=== PATIENT | female | born 1980 | race Caucasian/White ===

== ENCOUNTER 2019-10-18 19:31 | Observation (INO) ==
[2019-10-18 20:23] LABS: Basophils # (auto) 0.03 K/uL (0-0.2); Basophils % (auto) 0.2 %; Eosinophils % (auto) 2.1 %; Hematocrit (blood only) 37.2 % (37-47); Hemoglobin 12.5 g/dL (12.0-16.0); Immature Granulocytes # (auto) 0.02 K/uL (0.00-0.02); Immature Granulocytes % (auto) 0.1 %; Lymphocytes % (auto) 11.2 %; Mean Corpuscular Hemoglobin 27.5 pg (25-34); Mean Corpuscular Hgb Conc 33.6 g/dL (32-36); Mean Corpuscular Volume 81.8 fL (80-100); Monocytes # (auto) 0.71 K/uL (0.11-0.59); Neutrophils # (auto) 11.58 K/uL (1.4-6.5); Neutrophils % (auto) 81.4 %; Platelet Count 263 K/uL (130-400); RDW Coefficient of Variation 13.4 % (11.5-14.5); RDW Standard Deviation 40.2 fL (36.4-46.3); Red Blood Count 4.55 M/uL (4.2-5.4); White Blood Count 14.24 K/uL (4.8-10.8)
[2019-10-18] MEDS ORDERED: ONDANSETRON INJ 2 MG/ML 2 ML VIAL IV STA (20:38)
[2019-10-18] MEDS ORDERED: DICYCLOMINE HCL 10 MG/ML 2 ML AMP/VIAL IM ONE (20:38)
[2019-10-18] MEDS ORDERED: SODIUM CHLORIDE 0.9% 1000ML 1,000 ML IV ONE (20:38)
[2019-10-18] MEDS ORDERED: KETOROLAC 30 MG/ML VIAL IV STA (20:38)
[2019-10-18 20:40] LABS: Albumin Level 4.1 gm/dl (3.4-5.0); BUN Creatinine Ratio 14.9 (10-20); Calcium 9.2 mg/dl (8.5-10.1); Creatinine Clr Calc Pharmacy 76.4 ml/min; Est GFR (African American) 106.8; Est GFR (Non-African American) 92.1; Potassium 3.6 mmol/L (3.5-5.1)
[2019-10-18 20:43] LABS: Albumin Globulin Ratio 1.1 (0.9-2); Bilirubin,Total 0.2 mg/dl (0.2-1); Globulin 3.6 gm/dl (2.5-4.0); Total Protein 7.7 gm/dl (6.4-8.2)
[2019-10-18 21:06] LABS: Pregnancy Test, Urine Negative (Negative)
[2019-10-18 21:08] LABS: Appearance Urine Clear (Clear); Bacteria Urine Automated Negative (Negative); Bilirubin Urine Negative (Negative); Blood Urine Trace (Negative); Cast Urine Automated 0 /lpf (0-5); Color Urine Yellow; Epithelial Cell Urine Auto 0-5 /lpf (0-5); Glucose Urine UA Negative (Negative); Ketones Urine Negative (Negative); Leukocyte Esterase Urine Negative (Negative); Nitrite Urine Negative (Negative); Protein Urine Negative (Negative); RBC Urine Automated 0-4 /hpf (0-4); Specific Gravity Urine 1.014 (1.000-1.030); Urobilinogen Urine Negative (Negative); WBC Urine Automated 0 /hpf (0-5)
[2019-10-18] MEDS ORDERED: IOVERSOL 100ml IV PRN (21:23)
--- NOTE | 2019-10-18 21:38 | CT Scan Report ---
ABDOMEN AND PELVIS CT WITH IV CONTRAST CT DOSE: 258.80 mGycm HISTORY: Acute right lower quadrant abdominal pain with leukocytosis. suprapubic/RLQ pain, WBC 14 TECHNIQUE: Multiaxial CT images of the abdomen and pelvis were performed following the IV administrat ion of 94 cc of Optiray 320, A dose lowering technique was utilized adhering to the principles of [place] DA[place]. COMPARISON STUDY: None. FINDINGS: Minimal dependent bibasilar atelectasis. Trace right pleural effusion. No pneumatosis or pneumoperito neum. The imaged inferior cardiac chambers are unremarkable. Trace pericardial effusion. Spleen, panc reas, adrenal glands, gallbladder and liver appear unremarkable. Patency of the hepatic and portal ve ins. Probable cyst of the interpolar right kidney, 8 mm. The kidneys are otherwise unremarkable. Ureters, urinary bladder and uterus are unremarkable. Follicular changes of the ovaries. Aorta and IVC are unr emarkable. No bowel obstruction or bowel wall thickening. Nondilated fluid-filled loops of ileum are noted. Additionally, the appendix measures the upper limits of normal at 6.5 mm and is also fluid-donald led. The tip of the appendix is not well visualized. Limited exam without the use of IV contrast. No definite periappendiceal inflammation. Tiny fat filled periumbilical hernia. Breast parenchyma and so ft tissues are unremarkable. Subcutaneous air. The right gluteal tissues suggests medicinal injection site. IMPRESSION: 1. The appendix measures within the upper limits of normal and is fluid-filled. There are no signific ant periappendiceal inflammatory changes. Findings are equivocal for early acute appendicitis. Close follow-up is needed. 2. Nondilated fluid-filled loops of terminal ileum may be physiologic or reflect a nonspecific enteri tis. 3. Trace right pleural effusion with mild bibasilar atelectasis. ACT 112: Negative or not required by law. The above report was generated using voice recognition software. It may contain grammatical, syntax o r spelling errors. Electronically signed by: Juan Manuel Stephen M.D. 10/18/2019 9:37 PM
[2019-10-18] MEDS ORDERED: cefOXitin 2,000 MG/60 ML BAG IV STA (21:40)
[2019-10-18] MEDS ORDERED: SODIUM CHLORIDE 0.9% 500 ML IV SCH (21:45)
--- NOTE | 2019-10-18 23:31 | History & Physical Report ---
Date of Service October 18, 2019 Assessment & Plan (1) Abdominal pain: 38-year-old female with very mild lower abdominal pain and single episode of diarrhea. On my exam she appears to be somewhat improved from her initial presentation. The CT scan is negative for appendicitis though the appendix is the upper limits of normal. There is fluid within the appendix but also within the small bowel indicating a likely enteritis. Discussed her options to include diagnostic laparoscopy with appendectomy versus overnight observation with reassessment in the morning versus discharged home with close interval follow- up. At this point they would like to proceed with overnight observation Admit to observation No antibiotics Repeat labs in the morning Try to avoid pain meds IV fluids We will reassess in the morning Briefly discussed the risks of laparoscopic appendectomy to include but not limited to bleeding, infection, normal appendix, damage to surrounding structures, need for future more extensive surgery, conversion open, and the risk of anesthesia The differential diagnosis, and plan of care were discussed with the patient, all questions were answered, the patient expressed understanding agrees the plan of care as stated (2) Diarrhea: History of Present Illness Primary Care Provider: Jael Del Rosario MD 38-year-old female presented to the emergency department with lower abdominal pain along with a single episode of diarrhea. She noticed that this evening around 6 PM. Banding pain across the bilateral lower abdomen. Also had some upper abdominal discomfort. She did have a single episode of diarrhea. Denies any fevers. Denies any anorexia or nausea or vomiting. 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 She has never had pain like this before. Denies any history. Allergies Allergy/AdvReac Type Severity Reaction Status Date / Time josamycin Allergy Unknown Unverified 10/18/19 20:33 No Known Drug Allergies Allergy Verified 10/18/19 20:31 Home Medications Home Medications Medication Instructions Recorded Confirmed Type cyanocobalamin (vitamin B-12) 1,000 mcg PO QAM 10/18/19 10/18/19 History [Vitamin B-12] Past Med/Surg History Medical History Abdominal pain (Resolved) Abdominal pain BRBPR (bright red blood per rectum) Breast cyst (Acute) Bright red rectal bleeding (Resolved) DUB (dysfunctional uterine bleeding) (Acute) Dysautonomia Fatigue (Acute) Helicobacter pylori gastritis History of menstrual disorder No known health problems Surgical History History of esophagogastroduodenoscopy (EGD) PT STATES SHE HAD THIS PROCEDURE WITHOUT ANESTHESIA IN PAST Family History Mother Hypertension Stroke Grandmother (Maternal) Stroke Myocardial infarction Diabetes Hypertension Grandmother (Paternal) Stroke Social History Preferred Language: Bel[place]ian Communication Ability: Effective 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 Required: No Beliefs That Will Affect Care: None Current Living Situation: Spouse Feels Safe at Home: Yes Smoking Status: Never smoker Tobacco Type: cigarettes ; Cigarettes Per Day: QUIT 10 YEARS AGO ; Second Hand Exposure: No ; Hx Alcohol Use: Yes Alcohol type: wine Hx Substance Use: No Review of Systems Review of Systems: All systems reviewed & are unremarkable except as noted in HPI & below Physical Exam Constitutional: WD/WN, vitals as above Eyes: PERRL, conjunctivae normal, anicteric sclerae ENMT: external ear and nose normal, oropharynx normal Neck: trachea midline, no thyromegaly Respiratory: normal respiratory effort, lungs clear to auscultation Cardiovascular: RRR, no murmur, no edema Gastrointestinal (Abdomen): Percussion/Palpation: + abdomen tender (Tender to palpation in all 4 quadrants, worse in the lower abdomen. No guarding.) and abdomen soft; no guarding, abdomen not rigid, no hepatosplenomegaly and no hernia Musculoskeletal: no cyanosis or clubbing, extremities motor strength 5/5 Skin: no rashes, warm and dry Neurologic: PERRL, EOMI, accommodation nl, no face palsy, no dysarthria Psychiatric: A+Ox3, euthymic affect Lymphatic: no cervical or axillary lymphadenopathy Results & Data Vital Signs (Past 12 Hours) Vital Signs Temp Pulse Pulse Resp BP BP Pulse Ox 10/18/19 22:29 103 H 20 117/78 99 10/18/19 21:14 102 H 18 99/63 L 100 10/18/19 20:19 97 10/18/19 19:42 36.8 C 109 H 20 118/68 99 Laboratory Results Laboratory Results - last 24 hr 10/18/19 10/18/19 10/18/19 20:16 20:16 20:32 WBC 14.24 H RBC 4.55 Hgb 12.5 Hct 37.2 MCV 81.8 MCH 27.5 MCHC 33.6 RDW Std Deviation 40.2 RDW Coeff of Derick 13.4 Plt Count 263 MPV 9.0 Immature Gran % (Auto) 0.1 Neut % (Auto) 81.4 Lymph % (Auto) 11.2 [place] % (Auto) 5.0 Eos % (Auto) 2.1 Baso % (Auto) 0.2 Immature Gran # (Auto) 0.02 Neut # (Auto) 11.58 H Lymph # (Auto) 1.60 [place] # (Auto) 0.71 H Eos # (Auto) 0.30 Baso # (Auto) 0.03 Sodium 140 Potassium 3.6 Chloride 109 H Carbon Dioxide 25 Anion Gap 7.0 BUN 12 Creatinine 0.81 Est Cr Clr Drug Dosing 76.4 Est GFR ( Amer) 106.8 Est GFR (Non-Af Amer) 92.1 BUN/Creatinine Ratio 14.9 Glucose 114 H Calcium 9.2 Total Bilirubin 0.2 AST 6 L ALT 12 Alkaline Phosphatase 66 Total Protein 7.7 Albumin 4.1 Globulin 3.6 Albumin/Globulin Ratio 1.1 Lipase 131 Urine Color Urine Appearance Urine pH Ur Specific [place] Urine Protein Urine Glucose (UA) Urine Ketones Urine Blood Urine Nitrite Urine Bilirubin Urine Urobilinogen Ur Leukocyte Esterase Urine WBC (Auto) Urine RBC (Auto) U Hyaline Cast (Auto) U Epithel Cells (Auto) Urine Bacteria (Auto) Urine Test Negative 10/18/19 20:32 WBC RBC Hgb Hct MCV MCH MCHC RDW Std Deviation RDW Coeff of Derick Plt Count MPV Immature Gran % (Auto) Neut % (Auto) Lymph % (Auto) [place] % (Auto) Eos % (Auto) Baso % (Auto) Immature Gran # (Auto) Neut # (Auto) Lymph # (Auto) [place] # (Auto) Eos # (Auto) Baso # (Auto) Sodium Potassium Chloride Carbon Dioxide Anion Gap BUN Creatinine Est Cr Clr Drug Dosing Est GFR ( Amer) Est GFR (Non-Af Amer) BUN/Creatinine Ratio Glucose Calcium Total Bilirubin AST ALT Alkaline Phosphatase Total Protein Albumin Globulin Albumin/Globulin Ratio Lipase Urine Color Yellow Urine Appearance Clear Urine pH 5.0 Ur Specific [place] 1.014 Urine Protein Negative Urine Glucose (UA) Negative Urine Ketones Negative Urine Blood Trace H Urine Nitrite Negative Urine Bilirubin Negative Urine Urobilinogen Negative Ur Leukocyte Esterase Negative Urine WBC (Auto) 0 Urine RBC (Auto) 0-4 U Hyaline Cast (Auto) 0 U Epithel Cells (Auto) 0-5 Urine Bacteria (Auto) Negative Urine Test Diagnostic Findings ABDOMEN AND PELVIS CT WITH IV CONTRAST CT DOSE: 258.80 mGycm HISTORY: Acute right lower quadrant abdominal pain with leukocytosis. suprapubic/RLQ pain, WBC 14 TECHNIQUE: Multiaxial CT images of the abdomen and pelvis were performed following the IV administration of 94 cc of Optiray 320, A dose lowering technique was utilized adhering to the principles of ALARA. COMPARISON STUDY: None. FINDINGS: Minimal dependent bibasilar atelectasis. Trace right pleural effusion. No pneumatosis or pneumoperitoneum. The imaged inferior cardiac chambers are unremarkable. Trace pericardial effusion. Spleen, pancreas, adrenal glands, gallbladder and liver appear unremarkable. Patency of the hepatic and portal veins. Probable cyst of the interpolar right kidney, 8 mm. The kidneys are otherwise unremarkable. Ureters, urinary bladder and uterus are unremarkable. Follicular changes of the ovaries. Aorta and IVC are unremarkable. No bowel obstruction or bowel wall thickening. Nondilated fluid-filled loops of ileum are noted. Additionally, the appendix measures the upper limits of normal at 6.5 mm and is also fluid-filled. The tip of the appendix is not well visualized. Limited exam without the use of IV contrast. No definite periappendiceal inflammation. Tiny fat filled periumbilical hernia. Breast parenchyma and soft tissues are unremarkable. Subcutaneous air. The right gluteal tissues suggests medicinal injection site. IMPRESSION: 1. The appendix measures within the upper limits of normal and is fluid-filled. There are no significant periappendiceal inflammatory changes. Findings are equivocal for early acute appendicitis. Close follow-up is needed. 2. Nondilated fluid-filled loops of terminal ileum may be physiologic or reflect a nonspecific enteritis. 3. Trace right pleural effusion with mild bibasilar atelectasis. Code Status & VTE Plan VTE Prophylaxis Plan VTE Prophylaxis will be ordered: Yes PG Care Time/CCT Total # of Minutes Spent Total Time Spent with Patient: Total time spent is greater than 50% in coordination of care (as documented) at patient's floor/unit and/or counseling patient: Coding Level of Care Code 46523 OBS Care - Level 2 Diagnoses Abdominal pain R10.31 Abdominal location: right lower quadrant Diarrhea R19.7 (1) Abdominal pain Abdominal location: right lower quadrant Qualified Code(s): R10.31 - Right lower quadrant pain
[2019-10-19] MEDS ORDERED: MoRPHine SULFATE 2 MG/ML CARP IV PRN (00:06)
[2019-10-19] MEDS ORDERED: MoRPHine SULFATE 4 MG/ML 1 ML CARP\\VIAL IV PRN (00:06)
[2019-10-19] MEDS ORDERED: ONDANSETRON INJ 2 MG/ML 2 ML VIAL IV PRN (00:06)
[2019-10-19] MEDS ORDERED: ACETAMINOPHEN 1,000 MG/100 ML VIAL IV PRN (00:06)
[2019-10-19] MEDS ORDERED: DiphenhydrAMINE HCL 50 MG/ML VIAL IV PRN (00:06)
--- NOTE | 2019-10-19 00:12 | Emergency Department Note ---
Entered by Kimberley Petit acting as a scribe for Jarrell Frausto MD History of Present Illness General Chief complaint: Abdominal Pain Stated complaint: ABDOMINAL PAIN Time Seen by Provider: 10/18/19 19:52 Source: patient History of Present Illness Onset (ago): hour(s) 2 Location: abdomen Maximum Pain Intensity: 7 Quality: + sharp Associated symptoms: + denies other symptoms (urinary changes, changes to bowel movement, blood in urine or stool, fall, trauma); no nausea/vomiting Treatments prior to arrival: none The patient is a 38 year old female who presents to the Emergency Room with complaints of sharp abdominal pain beginning 2 hours ago. The patient states the pain initially felt like a spasm. She states she feels warm. The patient denies urinary changes, changes to bowel movements, blood in her urine or stool, fall, trauma, falls, and nausea. The patient denies taking pain medication. She denies use of alcohol or tobacco. She notes her last normal menstrual period occurred 7 days ago. She reports a history of GERD. Home Medications Home Medications Medication Instructions Recorded Confirmed Type cyanocobalamin (vitamin B-12) 1,000 mcg PO QAM 10/18/19 10/18/19 History [Vitamin B-12] Allergies Allergy/AdvReac Type Severity Reaction Status Date / Time josamycin Allergy Unknown Unverified 10/18/19 20:33 No Known Drug Allergies Allergy Verified 10/18/19 20:31 Past Med/Surg History Medical History (Updated 10/18/19 @ 23:29 by Adan Lisa DO, FACS) Abdominal pain (Resolved) Abdominal pain BRBPR (bright red blood per rectum) Breast cyst (Acute) Bright red rectal bleeding (Resolved) Diarrhea DUB (dysfunctional uterine bleeding) (Acute) Dysautonomia Fatigue (Acute) Helicobacter pylori gastritis History of menstrual disorder No known health problems Surgical History History of esophagogastroduodenoscopy (EGD) PT STATES SHE HAD THIS PROCEDURE WITHOUT ANESTHESIA IN PAST Family History Mother Hypertension Stroke Grandmother (Maternal) Stroke Myocardial infarction Diabetes Hypertension Grandmother (Paternal) Stroke Social History Preferred Language: Slovenian Communication Ability: Effective Agency Sales Development Associate Required: No Beliefs That Will Affect Care: None Current Living Situation: Spouse Feels Safe at Home: Yes Smoking Status: Never smoker Tobacco Type: cigarettes ; Cigarettes Per Day: QUIT 10 YEARS AGO ; Second Hand Exposure: No ; Hx Alcohol Use: Yes Alcohol type: wine Hx Substance Use: No Review of Systems See HPI for pertinent positives & negatives. and A total of 10 systems reviewed and were otherwise negative Physical Exam Vital Signs Vital Signs - 24 hr 10/18/19 19:42 10/18/19 20:19 10/18/19 21:14 Temperature 36.8 C Temperature Source Oral Pulse Rate 109 H Pulse Rate [Finger] 102 H Respiratory Rate 20 18 Respiratory Effort / Characteristics Non-Labored Spontaneous Non-Labored Respiratory Depth Normal Normal Blood Pressure 118/68 Blood Pressure [Left Arm] 99/63 L Blood Pressure Mean 84 Blood Pressure Mean [Left Arm] 75 Pulse Oximetry 99 97 100 Oxygen Delivery Method Room Air Room Air Room Air Sepsis Action Taken by Nursing No Action Required 10/18/19 22:29 Temperature Temperature Source Pulse Rate Pulse Rate [Finger] 103 H Respiratory Rate 20 Respiratory Effort / Characteristics Non-Labored Respiratory Depth Normal Blood Pressure Blood Pressure [Left Arm] 117/78 Blood Pressure Mean Blood Pressure Mean [Left Arm] 91 Pulse Oximetry 99 Oxygen Delivery Method Room Air Sepsis Action Taken by Nursing GENERAL: Well appearing, well nourished, NAD, non-toxic. EYE EXAM: Normal conjunctiva. PERRL, no anisocoria and EOM's grossly intact w/o pain. OROPHARYNX: Moist mucous membranes. Grossly normal dentition. NECK: Supple, no nuchal rigidity, no adenopathy, non-tender. No signs of meningismus. LUNGS: Clear to auscultation. Normal chest wall mechanics. HEART: NSR, no MRG. ABDOMEN: Suprapubic discomfort; questionable positive Obturator's; negative Psoas. Abdomen soft, normo-active bowel sounds, no masses, no rebound or guarding. BACK: No CVA TTP. SKIN: No rashes and no bruising. UPPER EXTREMITIES: Upper extremities are grossly normal. LOWER EXTREMITIES: No pitting edema. No calf pain. NEURO EXAM: A&O x3, cranial nerves II-XII grossly intact, normal speech, moves all 4 extremities on command w/o issue. Course Course 2010: Past medical records reviewed. The patient was evaluated in room B10. A complete history and physical exam was performed. 2044: Upon reevaluation, the patient is getting pain medication. 2139: I spoke to Dr. Lisa - General Surgery who agrees to come see the patient. 2149: Upon reevaluation, I discussed findings and results with the patient. She verbalized agreement of the treatment plan. I spoke with Dr. Lisa who agrees to accept the patient for further management and care. Administered Medications Discontinued Medications Dicyclomine HCl (Bentyl) 20 mg IM NOW ONE Stop: 10/18/19 20:39 Last Admin: 10/18/19 21:01 Dose: 20 mg Documented by: [id number] Sodium Chloride (Nss 1000ml) 1,000 mls @ 999 mls/hr IV .Q1H1M ONE Stop: 10/18/19 21:38 Last Infusion: 10/18/19 22:13 Dose: 0 mls/hr Documented by: [id number] Admin: 10/18/19 21:02 Dose: 999 mls/hr Documented by: [id number] Cefoxitin Sodium (Mefoxin) 2,000 mg in 60 mls @ 100 mls/hr IV NOW STA Stop: 10/18/19 22:15 Last Infusion: 10/18/19 23:50 Dose: 0 mls/hr Documented by: [id number] Admin: 10/18/19 23:16 Dose: 100 mls/hr Documented by: [id number] Sodium Chloride (Nss) 500 mls @ 125 mls/hr IV .Q4H REINALDO Stop: 11/17/19 21:44 Last Admin: 10/18/19 23:16 Dose: 125 mls/hr Documented by: [id number] Ioversol (Optiray 320 100ml) 94 ml IV ONCE PRN PRN Reason: Interaction Checking Stop: 10/22/19 21:22 Last Admin: 10/18/19 21:24 Dose: 94 ml Documented by: [id number] Ketorolac Tromethamine (Toradol) 30 mg IV NOW STA Stop: 10/18/19 20:39 Last Admin: 10/18/19 21:01 Dose: 30 mg Documented by: [id number] Ondansetron HCl (Zofran) 4 mg IV NOW STA Stop: 10/18/19 20:39 Last Admin: 10/18/19 21:01 Dose: 4 mg Documented by: [id number] Medical Decision Making Differential Diagnosis Differential diagnoses includes but is not limited to gastritis, peptic ulcer disease, GERD, gallbladder disease, pancreatitis, small bowel obstruction, acute coronary syndrome, pericarditis, ischemic bowel, irritable bowel disease, irr itable bowel syndrome, appendicitis, diverticulitis, malignancy, hernia, urinary tract infection, torsion, /ectopic , perforation, trauma, infectious. Medical Records Attestation: I reviewed the patient's medical records. Home Medications Current Medication List: was personally reviewed by me Laboratory Data Attestation: I reviewed the patient's lab results. Result diagrams: 10/18/19 20:16 10/18/19 20:16 Lab Results 10/18/19 10/18/19 10/18/19 Range/Units 20:16 20:16 20:32 WBC 14.24 H (4.8-10.8) K/uL RBC 4.55 (4.2-5.4) M/uL Hgb 12.5 (12.0-16.0) g/dL Hct 37.2 (37-47) % MCV 81.8 (80-100) fL MCH 27.5 (25-34) pg MCHC 33.6 (32-36) g/dL RDW Std Deviation 40.2 (36.4-46.3) fL RDW Coeff of Derick 13.4 (11.5-14.5) % Plt Count 263 (130-400) K/uL MPV 9.0 (7.4-10.4) fL Immature Gran % (Auto) 0.1 % Neut % (Auto) 81.4 % Lymph % (Auto) 11.2 % Mccreary % (Auto) 5.0 % Eos % (Auto) 2.1 % Baso % (Auto) 0.2 % Immature Gran # (Auto) 0.02 (0.00-0.02) K/uL Neut # (Auto) 11.58 H (1.4-6.5) K/uL Lymph # (Auto) 1.60 (1.2-3.4) K/uL Mccreary # (Auto) 0.71 H (0.11-0.59) K/uL Eos # (Auto) 0.30 (0-0.5) K/uL Baso # (Auto) 0.03 (0-0.2) K/uL Sodium 140 (136-145) mmol/L Potassium 3.6 (3.5-5.1) mmol/L Chloride 109 H (98-107) mmol/L Carbon Dioxide 25 (21-32) mmol/L Anion Gap 7.0 (3-11) BUN 12 (7-18) mg/dl Creatinine 0.81 (0.6-1.2) mg/dl Est Cr Clr Drug Dosing 76.4 ml/min Est GFR ( Amer) 106.8 Est GFR (Non-Af Amer) 92.1 BUN/Creatinine Ratio 14.9 (10-20) Glucose 114 H (70-99) mg/dl Calcium 9.2 (8.5-10.1) mg/dl Total Bilirubin 0.2 (0.2-1) mg/dl AST 6 L (15-37) U/L ALT 12 (12-78) U/L Alkaline Phosphatase 66 (45-117) U/L Total Protein 7.7 (6.4-8.2) gm/dl Albumin 4.1 (3.4-5.0) gm/dl Globulin 3.6 (2.5-4.0) gm/dl Albumin/Globulin Ratio 1.1 (0.9-2) Lipase 131 (73-393) U/L Urine Color Urine Appearance (Clear) Urine pH (4.5-7.5) Ur Specific Warren (1.000-1.030) Urine Protein (Negative) Urine Glucose (UA) (Negative) Urine Ketones (Negative) Urine Blood (Negative) Urine Nitrite (Negative) Urine Bilirubin (Negative) Urine Urobilinogen (Negative) Ur Leukocyte Esterase (Negative) Urine WBC (Auto) (0-5) /hpf Urine RBC (Auto) (0-4) /hpf U Hyaline Cast (Auto) (0-5) /lpf U Epithel Cells (Auto) (0-5) /lpf Urine Bacteria (Auto) (Negative) Urine Test Negative (Negative) 10/18/19 Range/Units 20:32 WBC (4.8-10.8) K/uL RBC (4.2-5.4) M/uL Hgb (12.0-16.0) g/dL Hct (37-47) % MCV (80-100) fL MCH (25-34) pg MCHC (32-36) g/dL RDW Std Deviation (36.4-46.3) fL RDW Coeff of Derick (11.5-14.5) % Plt Count (130-400) K/uL MPV (7.4-10.4) fL Immature Gran % (Auto) % Neut % (Auto) % Lymph % (Auto) % Mccreary % (Auto) % Eos % (Auto) % Baso % (Auto) % Immature Gran # (Auto) (0.00-0.02) K/uL Neut # (Auto) (1.4-6.5) K/uL Lymph # (Auto) (1.2-3.4) K/uL Mccreary # (Auto) (0.11-0.59) K/uL Eos # (Auto) (0-0.5) K/uL Baso # (Auto) (0-0.2) K/uL Sodium (136-145) mmol/L Potassium (3.5-5.1) mmol/L Chloride (98-107) mmol/L Carbon Dioxide (21-32) mmol/L Anion Gap (3-11) BUN (7-18) mg/dl Creatinine (0.6-1.2) mg/dl Est Cr Clr Drug Dosing ml/min Est GFR ( Amer) Est GFR (Non-Af Amer) BUN/Creatinine Ratio (10-20) Glucose (70-99) mg/dl Calcium (8.5-10.1) mg/dl Total Bilirubin (0.2-1) mg/dl AST (15-37) U/L ALT (12-78) U/L Alkaline Phosphatase (45-117) U/L Total Protein (6.4-8.2) gm/dl Albumin (3.4-5.0) gm/dl Globulin (2.5-4.0) gm/dl Albumin/Globulin Ratio (0.9-2) Lipase (73-393) U/L Urine Color Yellow Urine Appearance Clear (Clear) Urine pH 5.0 (4.5-7.5) Ur Specific Warren 1.014 (1.000-1.030) Urine Protein Negative (Negative) Urine Glucose (UA) Negative (Negative) Urine Ketones Negative (Negative) Urine Blood Trace H (Negative) Urine Nitrite Negative (Negative) Urine Bilirubin Negative (Negative) Urine Urobilinogen Negative (Negative) Ur Leukocyte Esterase Negative (Negative) Urine WBC (Auto) 0 (0-5) /hpf Urine RBC (Auto) 0-4 (0-4) /hpf U Hyaline Cast (Auto) 0 (0-5) /lpf U Epithel Cells (Auto) 0-5 (0-5) /lpf Urine Bacteria (Auto) Negative (Negative) Urine Test (Negative) Imaging Data Radiologist's Impression: Radiology results as stated below per my review and the radiologist's interpretation: ABDOMEN AND PELVIS CT WITH IV CONTRAST CT DOSE: 258.80 mGycm HISTORY: Acute right lower quadrant abdominal pain with leukocytosis. supr apubic/RLQ pain, WBC 14 TECHNIQUE: Multiaxial CT images of the abdomen and pelvis were performed fo llowing the IV administration of 94 cc of Optiray 320, A dose lowering technique was utilized adhering to the principles of ALARA. COMPARISON STUDY: None. FINDINGS: Minimal dependent bibasilar atelectasis. Trace right pleural effusion. No pneumatosis or pneumoperitoneum. The imaged inferior cardiac chambers are unremarkable. Trace pericardial effusion. Spleen, pancreas, adrenal glands, gallbladder and liver appear unremarkable. Patency of the hepatic and portal veins. Probable cyst of the interpolar right kidney, 8 mm. The kidneys are otherwise unremarkable. Ureters, urinary bladder and uterus are unremarkable. Follicular changes of the ovaries. Aorta and IVC are unremarkable. No bowel obstruction or bowel wall thickening. Nondilated fluid-filled loops of ileum are noted. Additionally, the appendix measures the upper limits of normal at 6.5 mm and is also fluid-filled. The tip of the appendix is not well visualized. Limited exam without the use of IV contrast. No definite periappendiceal inflammation. Tiny fat filled periumbilical hernia. Breast parenchyma and soft tissues are un remarkable. Subcutaneous air. The right gluteal tissues suggests medicinal injection site. IMPRESSION: 1. The appendix measures within the upper limits of normal and is fluid-filled. There are no significant periappendiceal inflammatory changes. Findings are equivocal for early acute appendicitis. Close follow-up is needed. 2. Nondilated fluid-filled loops of terminal ileum may be physiologic or reflect a nonspecific enteritis. 3. Trace right pleural effusion with mild bibasilar atelectasis. ACT 112: Negative or not required by law. The above report was generated using voice recognition software. It may contain grammatical, syntax or spelling errors. Electronically signed by: Juan Manuel Stephen M.D. 10/18/2019 9:37 PM Blood Pressure Blood Pressure Findings: Normal blood pressure MDM Narrative The patient is a 38 year old female who presents to the Emergency Room with complaints of sharp abdominal pain beginning 2 hours ago. Patient was seen and evaluated at the bedside. The patient did present with concern for right lower quadrant pain. The patient is also had some mild suprap ubic discomfort. The patient has had some infectious symptoms. The patient has had associated nausea but without vomiting. No recent heavy lifting twisting or turning or abdominal trauma. Patient denies any prior history of abdominal surgery. The patient did have blood work completed which did show mild white count of 14. Kidney function is unremarkable. Patient is a normal H&H and platelet count. The patient's urinalysis shows trace blood but no other findings. The patient CT abdomen pelvis does show equivocal for acute early appendicitis. I did speak with the on-call surgeon who did evaluate the patient at the bedside. And will keep for monitoring. Patient was made n.p.o. started on IV fluids and given a dose of antibiotics. Patient was admitted to the general surgery service. Impression & Plan Appendicitis, Abdominal pain Discharge Plan Visit Data Chief Complaint: Abdominal Pain Stated Complaint: ABDOMINAL PAIN ED Provider: Jarrell Frausto Discharge Problem: Appendicitis, Abdominal pain Patient Disposition: Being Evaluated by Hospitalist Discharge Instructions Interventions: ED Discharge Assessment Last Done: 10/18/19 23:48 Discharge Problem: Appendicitis Qualifiers: Appendicitis type: unspecified Qualified Code(s): K37 - Unspecified appendicitis Abdominal pain Qualifiers: Abdominal location: right lower quadrant Qualified Code(s): R10.31 - Right lower quadrant pain The scribe's documentation has been prepared under my direction and personally reviewed by me in its entirety. I confirm that the note above accurately reflects all work, treatment, procedures, and medical decision making performed by me.
[2019-10-19] MEDS: LACTATED RINGER'S 1,000 ML IV SCH ×2 (00:50→08:56)
[2019-10-19 05:36] LABS: Basophils # (auto) 0.03 K/uL (0-0.2); Basophils % (auto) 0.3 %; Eosinophils # (auto) 0.16 K/uL (0-0.5); Eosinophils % (auto) 1.4 %; Hematocrit (blood only) 33.8 % (37-47); Hemoglobin 11.2 g/dL (12.0-16.0); Immature Granulocytes # (auto) 0.02 K/uL (0.00-0.02); Immature Granulocytes % (auto) 0.2 %; Lymphocytes # (auto) 1.69 K/uL (1.2-3.4); Lymphocytes % (auto) 15.2 %; Mean Corpuscular Hemoglobin 27.4 pg (25-34); Mean Corpuscular Hgb Conc 33.1 g/dL (32-36); Mean Corpuscular Volume 82.6 fL (80-100); Mean Platelet Volume 9.2 fL (7.4-10.4); Monocytes # (auto) 0.63 K/uL (0.11-0.59); Monocytes % (auto) 5.7 %; Neutrophils # (auto) 8.56 K/uL (1.4-6.5); Neutrophils % (auto) 77.2 %; Platelet Count 241 K/uL (130-400); RDW Coefficient of Variation 13.4 % (11.5-14.5); RDW Standard Deviation 40.7 fL (36.4-46.3); Red Blood Count 4.09 M/uL (4.2-5.4); White Blood Count 11.09 K/uL (4.8-10.8)
[2019-10-19 06:01] LABS: Albumin Level 3.3 gm/dl (3.4-5.0); BUN Creatinine Ratio 11.2 (10-20); Calcium 8.3 mg/dl (8.5-10.1); Creatinine Clr Calc Pharmacy 80.8 ml/min; Est GFR (African American) 115.3; Est GFR (Non-African American) 99.5; Potassium 3.8 mmol/L (3.5-5.1)
[2019-10-19 06:06] LABS: Albumin Globulin Ratio 1.1 (0.9-2); Bilirubin,Total 0.6 mg/dl (0.2-1); Total Protein 6.3 gm/dl (6.4-8.2)
--- NOTE | 2019-10-19 07:53 | Surgery Progress Note ---
Date of Service October 19, 2019 Assessment & Plan (1) Abdominal pain: exam benign WBC improved does not appear to be appendicitis, will start diet Supervising Physician Co-Signing Physician Notes Patient seen and examined, labs reviewed, agree with above. Abdominal pain is gone. She is tolerating clear liquids. Her white blood cell count is downtrending. Her abdominal exam is benign. Likely resolving enteritis, no evidence of appendicitis at this time. Advance to regular diet, discharge to home. Return precautions given. Subjective feels better, no RLQ pain, no nausea but not hungry Physical Exam Gastrointestinal (Abdomen): Inspection/Auscultation: abdomen not distended Percussion/Palpation: abdomen soft; abdomen nontender Results & Data Vital Signs (Past 12 Hours) Vital Signs Temp Pulse Pulse Resp BP BP Pulse Ox 10/19/19 07:32 36.7 C 83 16 95/60 L 97 10/18/19 23:48 37 C 94 H 14 104/63 96 10/18/19 23:45 36.9 C 81 16 107/67 97 10/18/19 22:29 103 H 20 117/78 99 10/18/19 21:14 102 H 18 99/63 L 100 10/18/19 20:19 97 PG Care Time/CCT Total # of Minutes Spent Total Time Spent with Patient: Total time spent is greater than 50% in coordination of care (as documented) at patient's floor/unit and/or counseling patient: Coding Level of Care Code 63986 Subseq Hosp Care Lvl 1 Diagnoses Abdominal pain R10.31 Abdominal location: right lower quadrant (1) Abdominal pain Abdominal location: right lower quadrant Qualified Code(s): R10.31 - Right lower quadrant pain
--- NOTE | 2019-10-23 09:18 | Discharge Summary ---
Date of Service October 23, 2019 Admission HPI Per Admitting Provider 38-year-old female presented to the emergency department with lower abdominal pain along with a single episode of diarrhea. She noticed that this evening around 6 PM. Banding pain across the bilateral lower abdomen. Also had some upper abdominal discomfort. She did have a single episode of diarrhea. Denies any fevers. Denies any anorexia or nausea or vomiting. 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 She has never had pain like this before. Denies any history. Principal Diagnosis Enteritis Discharge Exam Gastrointestinal (Abdomen) Inspection/Auscultation: abdomen not distended Percussion/Palpation: abdomen soft; abdomen nontender Discharge Data Allergies Allergy/AdvReac Type Severity Reaction Status Date / Time josamycin Allergy Unknown Unverified 10/18/19 20:33 No Known Drug Allergies Allergy Verified 10/18/19 20:31 Consultations 10/18/19 23:02 ED Decision to Admit Stat Procedures Performed Operation Date: 10/18/19 07:15 <No data on this case meets the specified criteria> Operation Date: 10/19/19 09:20 <No data on this case meets the specified criteria> Ordered Studies 10/18/19 21:06 CT abd pelvis IV con only Stat Hospital Course (1) Abdominal pain: 38 y/o female presented to the ER with abdominal pain. White count was 14,[address] showed fluid filled appendix without any surrounding inflammatory changes and fluid filled terminal ileum. She was admitted to the surgical service for overnight observation to rule out appendicitis. In the morning her pain had resolved and white count improved to 11,000. She was able to tolerate diet and was not requiring any analgesics. She was stable for discharge home in the afternoon. Total Time Total Time Spent Total Time Spent (In Minutes): 10 Discharge Plan Discharge Items Patient Disposition: Home - Self-Care Reason For Visit: ABDOMINAL PAIN, POSSIBLE APPENDICITIS Discharge Diagnosis: Enteritis Activity: Resume your previous activity Non-emergency contact: Surgeon Call non-emergency contact if: your symptoms worsen, your pain is not controlled and your temperature is above 101.5 Follow-up/Referrals: Jael Del Rosario MD [Primary Care Provider] - 10/25/19 12:45 pm Diet: Regular Addtl Attending Provider Instructions: Return to the ER if you have increasing pain, fever or vomiting Pending Studies at Discharge: No Stand-Alone Forms: [facility], Work/School Release (Inpt), Smoking Cessation Medications and DC Order Prescriptions: Continued cyanocobalamin (vitamin B-12) [Vitamin B-12] 1,000 mcg Tablet 1,000 mcg PO QAM RF: 0 Discharge Orders: Discharge Order (Routine); Ordered 10/19/19 Ordered By: Usman Stark Jr Admission Data Admit Date/Time: 10/18/19 23:24 Attending Provider: Adan Lisa Admit Provider: Adan Lisa Primary Care Provider: Jael Del Rosario V. Other Providers: Adan Lisa Other Interventions: Discharge Summary Assessment (RN) Last Done: 10/19/19 11:39 DC Date/Time DO NOT enter until pt leaves facility: 10/19/19 14:55 Coding Level of Care Code D/C Day Management <30 mins Diagnoses Abdominal pain R10.31 Abdominal location: right lower quadrant
== END 2019-10-19 14:55 | disposition home or self-care (01) ==
LOC: 3N 19:31 → ED 19:31 → 3N 23:48